=== PATIENT | female | born 1980 | race Caucasian/White ===

== ENCOUNTER → 2018-05-11 | Outpatient (CLI) | payer MEDICAID | LOC: FIMAGING 07:24 ==

== ENCOUNTER → 2018-05-19 | Outpatient (CLI) | payer MEDICAID ==
[~2018-05-19] MED LIST: IOPAMIDOL (ISOVUE-300) 100 ML BTL ONE
== END ==
LOC: FIMAGING 07:55
PROVIDERS: ATTEND Family Medicine
DX: K59.00 Constipation, unspecified (principal); N28.1 Cyst of kidney, acquired
CPT/HCPCS: Q9967